=== PATIENT | female | born 1965 | race Caucasian/White ===

== ENCOUNTER 2016-12-02 05:04 | Day surgery (SDC) | payer BC ==
[2016-12-02] VITALS (9 sets, daily range): BP systolic 111–134; BP diastolic 65–82; PULSE 64–91; TEMP 98.6–100.3
[~2016-12-02] VITALS: Ht 149.9 cm; Wt 101.9 kg
[2016-12-02] MEDS ORDERED: PROAMATINE 5MG T5 MG PO (06:37)
[2016-12-02] MEDS ORDERED: NORCO 325 MG-51 TAB PO (06:38)
[2016-12-02] MEDS ORDERED: ULTRAM 50MG TAB50 MG PO (06:39)
[2016-12-02] MEDS ORDERED: LIORESAL 1010 MG/TAB PO (06:40)
[2016-12-02] MEDS ORDERED: XANAX 0.5MG0.5 MG PO (06:41)
[2016-12-02] MEDS ORDERED: TIROSINT137 MC1 PO (06:41)
[2016-12-02] MEDS ORDERED: PROTONIX 40MG T40 MG PO (06:42)
[2016-12-02] MEDS ORDERED: LASIX 40MG TABL40 MG PO (06:42)
[2016-12-02] MEDS ORDERED: CELEXA 20MG20 MG/TAB PO (06:43)
[2016-12-02] MEDS ORDERED: VITAMIN D 50,1.25 MG PO (06:44)
[2016-12-02] MEDS ORDERED: DESYREL 100MG100 MG PO (06:45)
[2016-12-02] MEDS ORDERED: DOXYCYCLINE HY100 MG PO (06:45)
[2016-12-02] MEDS ORDERED: COMPLETE SENIOR1 TA1 PO (06:46)
[2016-12-02] MEDS ORDERED: MOTRIN 800800 MG/TAB PO (07:15)
[2016-12-02] MEDS ORDERED: PERCOCET 325 MG1 TA2 PO (07:15)
== END 2016-12-02 17:32 | disposition home or self-care (01) ==
LOC: SDCO 05:04 → SURG 11:00 → SDCO 17:32
DX: N95.0 Postmenopausal bleeding (principal); N73.6 Female pelvic peritoneal adhesions (postinfective); D26.1 Other benign neoplasm of corpus uteri; N83.02 Follicular cyst of left ovary; N88.8 Other specified noninflammatory disorders of cervix uteri; E03.9 Hypothyroidism, unspecified
CPT/HCPCS: OP; A4315; A9284; C1713; E0710; J0690; J1100; J1885; J2270; J2405; J2550; J2704; J2710; J3010; J7120